=== PATIENT | male | born 1950 | race Caucasian/White ===

== ENCOUNTER 2017-07-05 18:27 | Emergency (ER) | payer OTHER ==
[2017-07-05] MEDS ORDERED: 0.9 % SODIUM CHLORIDE 1,000 ML IV ONE ×3 (18:41→22:21)
--- NOTE | 2017-07-05 18:48 | ED Physician Documentation ---
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 When he got out of car at home , he fell backwards onto concrete. thinks he lost consciousness. She took his BP and it was in the 60's, so she brought him to the ER. He says he has urinated only 2-3 times today. Heart history and is on clopidogrel. Has pain distal left posterolateral ribs. Abrasions of scalp. - ROS CONST: denies: recent illness, fever - PAST HX Cardiac Disease: CAD - SOCIAL HX Smoking History: non-smoker - FAMILY HX Family History: none - VITAL SIGNS Vital Signs: Vital Signs Temp Pulse Resp BP Pulse Ox 97.1 F L 57 L 22 116/54 98 07/05/17 18:30 07/05/17 18:48 07/05/17 18:30 07/05/17 18:48 07/05/17 18:30 - REVIEWED ASSESSMENTS Nursing Assessment Reviewed: Yes Vitals Reviewed: Yes Progress - Progress Progress: Patient Study Name: SHIRLENE COLLINS Date: July 05, 2017 7:16:27 PM CDT Modality Type: CT\SR Gender: M Description: CT BRAIN W/O CONTRAST : 50 Institution: [facility] Physician: SUDHA BYRNE - ER CT Brain without Contrast History: SYNCOPAL EPISODE WITH INJURY TO HEAD Technique: Transaxial CT was performed without contrast from the skull base to the vertex. Findings: Scattered bilateral white matter hypodensity is present, consistent with gliosis. Mild cerebral atrophy is present. The lateral ventricles are mildly dilated. No hemorrhage or edema-producing mass. The fourth ventricle is midline. The paranasal sinuses are clear. No skull fracture. The mastoid air cells are well developed and well aerated. Impression: 1. Mild cerebral atrophy and white matter gliosis. 2. No acute cerebral pathology. Electronically signed on July 05, 2017 8:06:53 PM CDT by: Aly Ely Patient Study Name: SHIRLENE COLLINS Date: July 05, 2017 7:19:26 PM CDT Modality Type: DX Gender: M Description: CHEST : 50 Institution: [facility] Physician: SUDHA BYRNE - ER EXAMINATION: Left rib series with AP chest. HISTORY: Left-sided pain after fall. FINDINGS: The heart size is normal. The lungs are clear. There is no pleural effusion or pneumothorax identified. The osseous structures are normal. There is no evidence of rib fracture or displacement. IMPRESSION: 1. No acute only abnormality. 2. No rib fracture. Electronically signed on July 05, 2017 8:09:52 PM CDT by: Aly Ely Patient Study Name: SHIRLENE COLLINS Date: July 05, 2017 7:33:01 PM CDT Modality Type: DX Gender: M Description: SPINE : 50 Institution: [facility] Physician: SUDHA BYRNE MOE EXAMINATION: Lumbar spine, three views. HISTORY: Back pain after fall. FINDINGS: There is slight rightward spinal curvature within the lumbar spine present. There is slight wedge compression deformity of the superior endplate of L2 which is age indeterminate. There is anterior spurring present throughout with multilevel facet arthropathy. IMPRESSION: 1. Mild superior endplate L2 wedge compression deformity, age indeterminate. 2. Multilevel moderate spondylosis. Electronically signed on July 05, 2017 8:16:50 PM CDT by: Aly Ely [id number], spoke with Dr. Elkins at [facility] who says they have nop beds and who okays transfer to another facility. He is orthostatic, systolic 115 lying, 85 sitting. 2140, accepted for transfer to [facility] ER per Dr. Golden. ED Results Lab/Radiology - Lab Results Lab Results: Lab Results 07/05/17 07/05/17 07/05/17 18:35 18:35 18:35 WBC RBC Hgb Hct MCV MCH MCHC RDW Plt Count Neut % (Auto) Lymph % (Auto) Dickens % (Auto) Eos % (Auto) Baso % (Auto) Neut # (Auto) Lymph # (Auto) Dickens # (Auto) Eos # (Auto) Baso # (Auto) Reactive Lymphs % Reactive Lymphs # PT 11.0 Seconds Seconds (9.4-11.6) INR 1.05 (0.9-1.2) Sodium Potassium Chloride Carbon Dioxide BUN Creatinine Estimated Creat Clear Est GFR ( Amer) Est GFR (Non-Af Amer) Glucose Calcium Total Bilirubin AST ALT Alkaline Phosphatase Creatine Kinase 124 U/L U/L (55-170) Troponin I < 0.03 ng/mL L ng/mL (0.03-0.06) Total Protein Albumin 07/05/17 07/05/17 18:35 18:35 WBC 7.00 K/ul K/ul (4.00-12.00) RBC 4.80 M/ul M/ul (3.90-5.20) Hgb 13.6 g/dL g/dL (12.0-18.0) Hct 39.4 % % (37.0-53.0) MCV 82.1 fl fl (80.0-100.0) MCH 28.4 pg pg (28.0-34.0) MCHC 34.6 g/dL g/dL (30.0-36.0) RDW 13.1 % % (11.3-14.3) Plt Count 239 K/mm3 K/mm3 (130-400) Neut % (Auto) 51.1 % % (39.0-79.0) Lymph % (Auto) 42.2 % % (16.0-50.0) Dickens % (Auto) 4.2 % % (0.0-11.0) Eos % (Auto) 0.4 % % (0.0-6.8) Baso % (Auto) 0.5 (0.0-1.5) Neut # (Auto) 3.6 # k/uL # k/uL (1.4-7.7) Lymph # (Auto) 2.9 # k/uL # k/uL (0.6-4.0) Dickens # (Auto) 0.3 # k/uL # k/uL (0.0-0.9) Eos # (Auto) 0.0 # k/uL # k/uL (0.0-0.6) Baso # (Auto) 0.0 # k/uL # k/uL (0.0-0.5) Reactive Lymphs % 1.7 % % (0.0-5.0) Reactive Lymphs # 0.1 # k/uL # k/uL (0.0-0.8) PT INR Sodium 138 mmol/L mmol/L (136-145) Potassium 3.7 mmol/L mmol/L (3.5-5.1) Chloride 100 mmol/L mmol/L (98-107) Carbon Dioxide 22 mmol/L mmol/L (22-30) BUN 31 mg/dL H mg/dL (9-20) Creatinine 2.20 mg/dL H mg/dL (0.66-1.25) Estimated Creat Clear 43 Est GFR ( Amer) 39 L (60 - ) Est GFR (Non-Af Amer) 32 L (60 - ) Glucose 111 mg/dL H mg/dL (74-106) Calcium 10.4 mg/dL H mg/dL (8.4-10.2) Total Bilirubin 0.3 mg/dL mg/dL (0.2-1.3) AST 23 U/L U/L (15-46) ALT 23 U/L U/L (13-69) Alkaline Phosphatase 71 U/L U/L (38-126) Creatine Kinase Troponin I Total Protein 7.6 g/dL g/dL (6.3-8.2) Albumin 4.6 g/dL g/dL (3.5-5.0) - Orders Orders: ED Orders Category Date Time Status Continuous EKG monitoring Q1H Care 07/05/17 18:42 Active Orthostatics 1T Care 07/05/17 18:[address] IV Lock 1T Care 07/05/17 18:[address] BRAIN W/O CONTRAST Stat Exams 07/05/17 Taken LUMBAR SPINE XR 2 OR 3 VIEWS [L SPINE 2 OR 3 VIEWS] [ Exams 07/05/17 Taken RAD] Stat RIBS UNILATERAL W/ PA CHEST [RAD] Stat Exams 07/05/17 Taken CBC/PLATELET/DIFF Routine Lab 07/05/17 18:35 Completed CMP Routine Lab 07/05/17 18:35 Completed PT-INR Routine Lab 07/05/17 18:35 Completed TROPONIN I (cTnI) Stat Lab 07/05/17 Ordered TROPONIN I (cTnI) Stat Lab 07/05/17 18:35 Completed URINALYSIS Routine Lab 07/05/17 Ordered ck [CREATINE KINASE] Routine Lab 07/05/17 18:35 Completed 0.9 % Sodium Chloride [Normal Saline] 1,000 ml Med 07/05/17 20:30 Ordered IV Q10H 0.9 % Sodium Chloride [Normal Saline] 1,000 ml Med 07/05/17 18:41 Discontinued IV Q1H EKG WITH COMPARISON Stat Ther 07/05/17 Ordered Syncope Physical Exam - Physical Exam General Appearance: alert, moderate distress EENT: nml eye inspection, PERRL (EOMI) Neck/Back: neck supple, non-tender Respiratory: no resp distress, breath sounds normal, other CVS: reg rate & rhythm, heart sounds normal Abdomen: non-tender, nml bowel sounds - Neuro/Psych Higher Functions: alert, no evidence of acute CVA, mood/affect nml (sense of humor intact), eyes open Cranial Nerves: nml as tested Cerebellar: nml as tested Sensorimotor: nml motor response, nml reflexes, other (can dorsiflex 1st toes against resistance) Discharge Clincal Impression: Orthostasis Head injury Qualifiers: Encounter type: initial encounter Qualified Code(s): S09.90XA - Unspecified injury of head, initial encounter Syncope Qualifiers: Syncope type: unspecified Qualified Code(s): R55 - Syncope and collapse Referrals: Primary Doctor,No [Primary Care Provider] - 2 Days Condition: Fair Disposition: 02 XFER SHT-TRM HOSP Decision to Admit: NO Decision Time: 21:41
[2017-07-05 18:55] LABS: BASOPHILS % 0.5 (0.0-1.5); EOSINOPHILS % 0.4 % (0.0-6.8); MEAN CORPUSCULAR HEMOGLOBIN 28.4 pg (28.0-34.0); MEAN CORPUSCULAR VOLUME 82.1 fl (80.0-100.0); MONOCYTES % 4.2 % (0.0-11.0); NEUTROPHILS # 3.6 # k/uL (1.4-7.7)
[2017-07-05] MEDS ORDERED: 0.9 % SODIUM CHLORIDE 1,000 ML IV SCH (20:30)
--- NOTE | 2017-07-05 21:44 | Diagnostic Imaging Report ---
SUDHA BYRNE [facility] [address] [facility] [address] [address] Report Submission Date: July 05, 2017 8:16:50 PM CDT Patient Study Name: SHIRLENE COLLINS Date: July 05, 2017 7:33:01 PM CDT Modality Type: DX Gender: M Description: SPINE : 50 Institution: [facility] Physician: SUDHA BYRNE EXAMINATION: Lumbar spine, three views. HISTORY: Back pain after fall. FINDINGS: There is slight rightward spinal curvature within the lumbar spine present. There is slight wedge compression deformity of the superior endplate of L2 which is age indeterminate. There is anterior spurring present throughout with multilevel facet arthropathy. IMPRESSION: 1. Mild superior endplate L2 wedge compression deformity, age indeterminate. 2. Multilevel moderate spondylosis. Electronically signed on July 05, 2017 8:16:50 PM CDT by: Aly WOODARD
--- NOTE | 2017-07-05 21:44 | Diagnostic Imaging Report ---
SUDHA BYRNE [facility] [address] [facility] [address] [place], [place]. [address] Report Submission Date: July 05, 2017 8:06:53 PM CDT Patient Study Name: SHIRLENE COLLINS Date: July 05, 2017 7:16:27 PM CDT Modality Type: CT\SR Gender: M Description: CT BRAIN W/O CONTRAST : 50 Institution: [facility] Physician: SUDHA BYRNE CT Brain without Contrast History: SYNCOPAL EPISODE WITH INJURY TO HEAD Technique: Transaxial CT was performed without contrast from the skull base to the vertex. Findings: Scattered bilateral white matter hypodensity is present, consistent with gliosis. Mild cerebral atrophy is present. The lateral ventricles are mildly dilated. No hemorrhage or edema-producing mass. The fourth ventricle is midline. The paranasal sinuses are clear. No skull fracture. The mastoid air cells are well developed and well aerated. Impression: 1. Mild cerebral atrophy and white matter gliosis. 2. No acute cerebral pathology. Electronically signed on July 05, 2017 8:06:53 PM CDT by: Aly Ely [facility]
--- NOTE | 2017-07-05 21:45 | Diagnostic Imaging Report ---
SUHDA BYRNE [facility] [address] [facility] [address] [address] Report Submission Date: July 05, 2017 8:09:52 PM CDT Patient Study Name: SHIRLENE COLLINS Date: July 05, 2017 7:19:26 PM CDT Modality Type: DX Gender: M Description: CHEST : 50 Institution: [facility] Physician: SUDHA BYRNE EXAMINATION: Left rib series with AP chest. HISTORY: Left-sided pain after fall. FINDINGS: The heart size is normal. The lungs are clear. There is no pleural effusion or pneumothorax identified. The osseous structures are normal. There is no evidence of rib fracture or displacement. IMPRESSION: 1. No acute only abnormality. 2. No rib fracture. Electronically signed on July 05, 2017 8:09:52 PM CDT by: Aly Ely [facility]
[2017-07-06 03:22] VITALS: BP 115/55
== END 2017-07-05 22:20 | disposition short-term general hospital (02) ==
LOC: ED 18:27
DX: S09.90XA Unspecified injury of head, initial encounter (principal); R55 Syncope and collapse; W19.XXXA Unspecified fall, initial encounter; Y92.9 Unspecified place or not applicable; Y93.9 Activity, unspecified; Y99.9 Unspecified external cause status
CPT/HCPCS: 36415; 70450; 71101; 72100; 80053; 82550; 84484; 85025; 85610; 93005; 96360; 96361; 99285; J7030; S1016